=== PATIENT | male | born 2000 | race Two or more races ===

== ENCOUNTER 2024-02-17 22:21 | Emergency (ER) | payer SELFPAY ==
[~2024-02-17] VITALS: Ht 177.8 cm; Wt 84.0 kg
[2024-02-17 22:40] VITALS: BP 144/76; PULSE 109; RESP 18; TEMP 98.7; O2SAT 98
[2024-02-17] MEDS: BACITRACIN ZINC OINT UDPKT TOP ONE (23:00)
[2024-02-17] MEDS: TETANUS, DIPHTHERIA, PERTUSSIS VAC/PF 0.5ML (>10YR OLD) IM ONE (23:39)
[2024-02-18] MEDS: ACETAMINOPHEN 325MG TABLET PO ONE (00:29)
== END 2024-02-18 06:20 | disposition home or self-care (01) ==
LOC: ER 22:41
DX: S51.812A Laceration without foreign body of left forearm, initial encounter (principal); X58.XXXA Exposure to other specified factors, initial encounter; Y93.89 Activity, other specified; Y92.89 Other specified places as the place of occurrence of the external cause; Y99.8 Other external cause status
CPT/HCPCS: 12002; 73090; 90471; 90715; 99283